=== PATIENT | female | born 1945 | race African-American/Black ===

== ENCOUNTER 2017-04-15 12:49 | Emergency (ER) | payer OTHER ==
[~2017-04-15] VITALS: Ht 165.1 cm; Wt 118.7 kg
[~2017-04-15 12:49] MED LIST: ALBUTEROL SULF8.5 GM IH; ASPIR 8181 M1 PO; BENTYL20 MG PO; CYANOCOBALAM1000 MCG PO; DEXILANT60 MG PO; DIOVAN160 MG PO; DIOVAN40 MG PO; DITROPAN5 MG PO; FISH OIL300 MG PO; GABAPENTIN100 MG PO; HYDROCHLOROTH12.5 M1 PO; LASIX20 MG PO; LEVAQUIN750 MG PO; LEXAPRO20 MG PO; LEXAPRO5 MG PO; MOTRIN600 MG PO; NORCO 5/3251 TABLET PO; NORVASC5 MG PO; OMEPRAZOLE20 MG PO; OXYBUTYNIN CHLOR5 MG PO; PERCOCET 5/31 TABLET PO; PHENERGAN-CODE120 ML PO; PREDNISONE20 MG PO; PREDNISONE50 MG PO; PROVENTIL HFA6.7 GM IH; PROVENTIL,2.5 MG/3 M IH; ROBITUSSIN AC,T10 ML PO; SKELAXIN400 M1 PO; TYLENOL WITH C1 EACH PO; VITAMIN A8000 UNIT PO; VITAMIN B-6200 MG PO; VITAMIN E100 UNIT PO; WELLBUTRIN SR150 MG PO; WELLBUTRIN75 MG PO; WOMEN'S DAILY1 EAC1 PO; ZOFRAN ODT4 MG PO
[2017-04-15 14:20] LABS: HEMATOCRIT 41.7 % (36.0-46.0); MCH 30.2 PG (29.0-34.0); MCHC 32.6 G/DL (30.0-36.0); MCV 92.7 FL (83-99); MEAN PLAT.VOLUME 10.4 uM^3 (9.5-12.4); PLATELET COUNT 196 K/uL (156-360); RBC DIS.WIDTH-CV 13.6 % (11.8-14.6); RBC DIS.WIDTH-SD 45.8 % (39-53); WHITE BLOOD COUNT 6.1 K/uL (4.1-10.2)
[2017-04-15 14:32] LABS: CHLORIDE 104 mEq/L (99-109); POTASSIUM 3.9 mEq/L (3.7-5.4); SODIUM 139 mEq/L (136-147)
[2017-04-15 14:34] LABS: GLUCOSE 92 mg/dL (70-99)
[2017-04-15 14:36] LABS: ANION GAP 9 MEQ/L (2-14); TOTAL BILIRUBIN 0.5 mg/dL (0.0-1.0)
[2017-04-15 14:38] LABS: ALKALINE PHOSPHATASE 155 IU/L (3-129); GFR ESTIMATE (CALCULATED) > 59 mL/min/
[2017-04-15 14:39] LABS: UREA NITROGEN (BUN) 15 mg/dL (9-23)
[2017-04-15 14:41] LABS: LIPASE 24 U/L (1.0-51.0)
[2017-04-15 14:47] LABS: TROP-I INTERPRETATION NEGATIVE; TROPONIN-I < 0.01 ng/mL (0.0-0.30)
[2017-04-15 15:28] LABS: ADD MIUA? YES; BILIRUBIN NEGATIVE; BLOOD NEGATIVE; COLOR YELLOW ((YELLOW)); GLUCOSE (STRIP) NEGATIVE; KETONES NEGATIVE; LEUKOCYTES TRACE; NITRITE NEGATIVE; PROTEIN (STRIP) NEGATIVE; SPECIFIC GRAVITY 1.017 (1.000-1.030); UROBILINOGEN 0.2 MG/DL (0.2-1.0)
[2017-04-15 15:34] LABS: BACTERIA NONE SEEN /HPF; EPITHELIAL CELLS 1+ /HPF; MUCUS 1+ /LPF; RED BLOOD CELLS 0-5 /HPF (0-5); UCUL ADDED? NO; WHITE BLOOD CELLS 0-5 /HPF (0-5)
[2017-04-15 18:55] VITALS: BP 114/69
== END 2017-04-15 18:44 | disposition home or self-care (01) ==
LOC: EME 12:49
PROVIDERS: Physician Assistant Medical
DX: K80.20 Calculus of gallbladder without cholecystitis without obstruction (principal); I10 Essential (primary) hypertension; J45.909 Unspecified asthma, uncomplicated; Z98.84 Bariatric surgery status; Z87.891 Personal history of nicotine dependence; Z88.0 Allergy status to penicillin
CPT/HCPCS: 74177; 80053; 81003; 83690; 84484; 85027; 93005; 99281; 99284; J2270; J2405; J7030; S0028